=== PATIENT | female | born 1945 | race Caucasian/White ===

== ENCOUNTER 2023-10-04 06:38 | Day surgery (SDC) | payer MEDICARE ==
[2023-10-03 12:37] LABS: BASOPHILS # (AUTO) 0.1 X10'3 (0-0.2); EOSINOPHILS # (AUTO) 0.2 X10'3 (0-0.9); EOSINOPHILS % (AUTO) 2.4 % (0-6); HEMATOCRIT 45.8 % (35.0-45.0); HEMOGLOBIN 15.6 g/dl (12.0-16.0); LYMPHOCYTES # (AUTO) 2.2 X10'3 (1.1-4.8); MEAN CORPUSCULAR HEMOGLOBIN 29.7 PG (27.0-31.0); MEAN CORPUSCULAR HGB CONC 34.1 g/dL (33.0-36.5); MEAN CORPUSCULAR VOLUME 87.1 FL (78-98); MEAN PLATELET VOLUME 8.3 FL (7.4-10.4); MONOCYTES # (AUTO) 0.6 X10'3 (0-0.9); MONOCYTES % (AUTO) 7.5 % (2-12); NEUTROPHILS # (AUTO) 4.8 X10'3 (1.8-7.7); NEUTROPHILS % (AUTO) 61.1 % (42-75); PLATELET COUNT 249 X10'3 (140-440); RED BLOOD COUNT 5.26 X10'6 (4.20-5.60); RED CELL DISTRIBUTION WIDTH 14.1 % (11.5-14.5); WHITE BLOOD COUNT 7.8 X10'3 (4.5-11.0)
[2023-10-03 12:50] LABS: ALBUMIN 4.3 G/DL (3.4-5.0); ANION GAP 9 (8-16); BLOOD UREA NITROGEN 12 MG/DL (7-18); BUN/CREATININE RATIO 14.5 (10.0-20.0); CALCIUM 9.7 MG/DL (8.5-10.1); CHLORIDE 101 MMOL/L (99-107); CREATININE 0.83 MG/DL (0.40-0.90); GLUCOSE 127 MG/DL (70-104); POTASSIUM 3.2 MMOL/L (3.5-5.1); SODIUM 141 MMOL/L (135-145); TOTAL CARBON DIOXIDE 30.8 MMOL/L (24-32); eGFR 66 ML/MIN
[2023-10-04] VITALS (11 sets, daily range): BP systolic 117–151; BP diastolic 58–74; PULSE 55–65; RESP 10–17; TEMP 97.9; O2SAT 97–99
[~2023-10-04] VITALS: Ht 167.6 cm; Wt 81.0 kg
[~2023-10-04 06:38] MED LIST: ASCO500C18; ASPI-1265 PO; ATEN100T PO; CALC500P30 PO; CHOL100046; CLOP75TA34 PO; FERR324T4; HYDR25TA4 PO; LISI10TA27 PO; MAGN400C PO; OMEG1CAP2 PO; ROSU20TA2 PO; UBID300C3 PO
[2023-10-04] MEDS ORDERED: ATOR40TA72 PO (07:24)
[2023-10-04] MEDS ORDERED: NIFE-73 PO (07:24)
[2023-10-04] MEDS ORDERED: UBID100C45 PO (07:25)
[2023-10-04] MEDS ORDERED: KRIL1CAP40 PO (07:25)
[2023-10-04] MEDS ORDERED: POTA8TAB69 PO (07:26)
[2023-10-04] MEDS ORDERED: LIDOcaine 1% (10mg/ml) 2ml vial ONE (07:45)
[2023-10-04] MEDS: normal saline 1,000 ML IV SCH (07:45)
[2023-10-04] MEDS ORDERED: verapamil 2.5 mg/ml inj IV ONE (07:45)
[2023-10-04] MEDS ORDERED: midazolam 1 mg/ML 2ml injection ONE (07:46)
[2023-10-04] MEDS ORDERED: fentaNYL/PF 50MCG/1 ML 2ML syringe ONE (07:46)
[2023-10-04] MEDS ORDERED: iohexol 350 MG/ML 50ML vial IV ONE (07:46)
[2023-10-04] MEDS ORDERED: iohexol 350MG/ML 100ml bottle IV ONE ×2 (07:46→08:44)
[2023-10-04] MEDS ORDERED: heparin 1,000unit/ml 10ml vial 10 ML ONE (07:46)
[2023-10-04] MEDS ORDERED: nitroGLYCERIN 500mcg/5mL D5W 5 ML IV ONE (07:47)
[2023-10-04] MEDS: potassium Cl 20 mEq SR tablet PO ONE (08:00)
[2023-10-04] MEDS ORDERED: heparin 25,000 UNIT/250ml bag 250 ML IV ONE (08:44)
[2023-10-04] MEDS: LORazepam 0.5 MG tablet PO PRN (09:57)
[2023-10-04] MEDS: diphenhydrAMINE 25mg capsule PO PRN (09:57)
== END 2023-10-04 13:00 | disposition home or self-care (01) ==
LOC: SSTAY O 06:38
PROVIDERS: ATTEND Internal Medicine Cardiovascular Disease
DX: R94.39 Abnormal result of other cardiovascular function study (principal); I25.10 Atherosclerotic heart disease of native coronary artery without angina pectoris; I10 Essential (primary) hypertension; E78.5 Hyperlipidemia, unspecified; E66.9 Obesity, unspecified; K21.9 Gastro-esophageal reflux disease without esophagitis; Z79.82 Long term (current) use of aspirin; Z79.899 Other long term (current) drug therapy; Z90.49 Acquired absence of other specified parts of digestive tract; Z90.89 Acquired absence of other organs; Z95.5 Presence of coronary angioplasty implant and graft; Z98.890 Other specified postprocedural states; Z68.28 Body mass index [BMI] 28.0-28.9, adult; Z88.0 Allergy status to penicillin; Z82.3 Family history of stroke; Z83.3 Family history of diabetes mellitus; Z82.5 Family history of asthma and other chronic lower respiratory diseases
CPT/HCPCS: 80048; 85025; 92943; 93005; 93458; 99152; 99153; C1769; J1644; J2250; J3010; J3490; J7030; Q9967; 76937; A6258; A6402; A6449; C1725; C1751; C9607